=== PATIENT | male | born 1995 | race Caucasian/White ===

== ENCOUNTER 2016-12-15 09:37 | Emergency (ER) | payer SELFPAY ==
--- NOTE | 2016-12-15 10:26 | RAD ---
INDICATION: Right ankle injury COMPARISON: January 22, 2014 TECHNIQUE: AP, lateral, and oblique views were obtained. FINDINGS: There is no acute fracture or dislocation. There is a small avulsion injury at the level of the dorsal aspect of the navicular and there is probably an old avulsion injury from the medial malleolus. Both findings are unchanged There is lateral soft tissue swelling. IMPRESSION: LATERAL SOFT TISSUE SWELLING. NO ACUTE FINDINGS.
--- NOTE | 2016-12-15 10:37 | ED ---
Lower Extremity - HPI Summary HPI Summary: 20M presents with right ankle injury s/p rolling it in basketball yesterday. 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 He was playing a game of basketball when he inverted his ankle. He states he has still be able to ambulate it with pain. He took some Advil for his pain. He denies any numbness or tingling. His pain is 8/10. He denies any previous injury to the ankle. - History of Current Complaint Chief Complaint: EDExtremityLower Stated Complaint: RT FOOT INJURY Time Seen by Provider: 12/15/16 09:50 Pain Intensity: 4 - Allergies/Home Medications Allergies/Adverse Reactions: Allergies Allergy/AdvReac Type Severity Reaction Status Date / Time Amoxicillin [From Augmentin] Allergy Diarrhea Verified 08/29/14 11:42 Clavulanic Acid Allergy Diarrhea Verified 08/29/14 11:42 [From Augmentin] PMH/Surg Hx/FS Hx/Imm Hx Cardiovascular History: Denies: Hx Congestive Heart Failure, Hx Hypertension, Hx Pacemaker/ICD, Other Cardiovascular Problems/Disorders Respiratory History: Reports: Hx Asthma - SPORTS INDUCED- NO INHALER Denies: Hx Chronic Obstructive Pulmonary Disease (COPD), Other Respiratory Problems/Disorders History: Denies: Hx Renal Disease Sensory History: Denies: Hx Contacts or Glasses, Hx Hearing Aid Opthamlomology History: Denies: Hx Contacts or Glasses Psychiatric History: Denies: Hx Panic Disorder Infectious Disease History: No Infectious Disease History: Denies: Traveled Outside the [place] in Last 30 Days - Family History Known Family History: Positive: None - reviewed & noncontributory Negative: Cardiac Disease - Social History Alcohol Use: None Hx Substance Use: No Substance Use Type: Reports: None Hx Tobacco Use: No Smoking Status (MU): Never Smoked Tobacco Review of Systems Negative: Fever Negative: Chest Pain Negative: Shortness Of Breath Positive: Myalgia - right ankle pain, Edema - right ankle All Other Systems Reviewed And Are Negative: Yes Physical Exam Triage Information Reviewed: Yes Vital Signs On Initial Exam: Initial Vitals Temp Pulse Resp BP Pulse Ox 97.9 F 50 14 107/37 100 12/15/16 09:39 12/15/16 09:39 12/15/16 09:39 12/15/16 09:39 12/15/16 09:39 Vital Signs Reviewed: Yes Appearance: Positive: Well-Appearing Skin: Positive: Warm, Dry Head/Face: Positive: Normal Head/Face Inspection Eyes: Positive: Normal, Conjunctiva Clear Respiratory/Lung Sounds: Positive: Clear to Auscultation, Breath Sounds Present Cardiovascular: Positive: Normal, RRR Musculoskeletal: Positive: Limited @ - ankle due to pain, Other - pain and edema over anterior talofibular ligament, good pulses, capillary refill < 2secs Diagnostics - Vital Signs Vital Signs Temp Pulse Resp BP Pulse Ox 12/15/16 09:42 97.3 F 50 16 107/37 100 12/15/16 09:39 97.9 F 50 14 107/37 100 - Laboratory Lab Statement: Any lab studies that have been ordered have been reviewed, and results considered in the medical decision making process. - Radiology ankle Xray Interpretation: No Acute Changes - IMPRESSION: LATERAL SOFT TISSUE SWELLING. NO ACUTE FINDINGS. Radiology Interpretation Completed By: Radiologist Lower Extremity Course/Dx - Course Course Of Treatment: 20M presents with right ankle injury s/p inverting it yesterday. is able to ambulate on it with pain. has edema over lateral aspect ankle. tender over anterior talofibular ligament. xray normal. will treat as sprain with RICE. patient understands and agrees with plan - Diagnoses Differential Diagnosis/HQI/PQRI: Positive: Fracture (Closed), Sprain, Strain Provider Diagnoses: Right ankle injury Discharge - Discharge Plan Condition: Good Disposition: HOME Patient Education Materials: Ankle Sprain (ED) Forms: *Work Release Referrals: Zac Hernandez MD [Primary Care Provider] - Additional Instructions: Stay off ankle as possible as possible Ice, elevate, keep in JOSE M Ibuprofen every 6 hours for pain Follow up with primary if no improvement Return to ED if develop any numbness or tingling or any new or worsening symptoms
[2016-12-15 11:34] VITALS: BP 119/58
== END 2016-12-15 11:35 | disposition home or self-care (01) ==
LOC: ED 09:37
DX: M25.571 Pain in right ankle and joints of right foot (principal); R60.0 Localized edema; S99.911A Unspecified injury of right ankle, initial encounter; X50.9XXA Other and unspecified overexertion or strenuous movements or postures, initial encounter; Y93.67 Activity, basketball; Y92.9 Unspecified place or not applicable
CPT/HCPCS: 99282